=== PATIENT | female | born 1970 | race Two or more races ===

== ENCOUNTER 2023-12-04 08:45 | Outpatient (RCR) | payer BC, SELFPAY ==
[2023-12-04 13:27] VITALS: BMI 27.3
[2023-12-04 13:30] VITALS: BP 124/64; PULSE 72; TEMP 36.2
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
--- NOTE | 2023-12-05 09:39 | HO.PHP ---
[facility] staff admin, Rebeca, received a voicemail from Isis who was tearful stating that she would not be able to attend the program for the day. Rebeca asked [facility] staff member to follow up with Isis. [facility] staff member reached out to Isis who expressed that she is not coming to program today because she is uncertain to if she has insurance currently. Isis disclosed that she reached out to her because he recently switched jobs to get the information but he is refusing to tell her due to them going through a divorce. PHP staff member disclosed that they will see if they are able to see if her insurance is active on our end and if it is not the hospital can help set her up with [facility]. Isis was receptive. [facility] staff member explored with Rebeca if Isis's insurance is active. Rebeca disclosed because she has [employer], she is unable to check due to their website being down. [facility] staff member contacted Isis and encouraged her to call her insurance company to further assess if her insurance is currently active. Isis was in agreement. PHP staff member stated if it is active, then she is able to return to the program, if it is not, we can have her meet with a staff member through the hospital to set her up with the insurance. Isis was receptive and voiced that she feels like a failure for not coming to the program today and stated that she really wants to do this. [facility] staff member informed her that she is not a failure and we will help her figure out the insurance piece in order to have her engage within the services. Isis thanked the [facility] staff member and voiced she will contact her back once she speaks with [employer].
== END 2023-12-04 23:59 | disposition home or self-care (01) ==
LOC: HO.PHPA 08:45
PROVIDERS: Visit Provider Psychiatry & Neurology Psychiatry
DX: F33.2 Major depressive disorder, recurrent severe without psychotic features (principal); F43.10 Post-traumatic stress disorder, unspecified; F41.1 Generalized anxiety disorder; F44.81 Dissociative identity disorder
CPT/HCPCS: 90791; 90853